=== PATIENT | male | born 1975 | race Caucasian/White ===

== ENCOUNTER 2023-09-02 17:30 | Emergency (ER) | payer BC, SELFPAY ==
[2023-09-02] VITALS (17 sets, daily range): BP systolic 131–151; BP diastolic 78–91; PULSE 58–74; RESP 20; TEMP 36.9; O2SAT 95–98; BMI 33.2
--- NOTE | 2023-09-02 17:45 | ED.GENADULT ---
HPI - General Adult General Date Seen: 09/02/23 Chief complaint: Anxiety Stated complaint: dizzy, chest pain Time Seen by Provider: 09/02/23 17:45 History of Present Illness HPI narrative: 47-year-old gentleman with a history of ankylosing spondylitis (on Humira and Celebrex), presenting to the ER today with his for evaluation of dizziness. History is obtained primarily from the patient but is also supplemented in many areas by his . He has had symptoms of dizziness intermittently for the past 10 days or so. For symptoms began about 10 days ago. He remembers bending over and crouching down his house to work on his VAC when he suddenly began to feel very dizzy. He felt a bit off balance but not really vertigo or spinning and he felt like he might pass out. He was nauseous. He got a little bit sweaty. No other symptoms. No chest pain. No palpitations. No headache. No seizure activity. He went to go lay down occur on the couch to nap and while lying down started feel better. was checking on him and noted that after a few minutes he fell asleep. After he woke up use feeling a bit better but for the next week or so he had a period of ?just not feeling right? every day. He really can not describe but was not right but maybe a little bit weak or tired or somewhat off balance. He was feeling well enough that he and his were traveling from [place] to [place] (see their college age son participate in a rowing event). He recalls that he was able to drive and as they were going through traffic in [place] he had an episode where he suddenly felt very dizzy again. He was sweaty and dizzy and nauseous and had pulled the side of the road. His continue driving. He was able to get better. They stopped and ate some dinner (chipoltle). He remained a little bit dizzy and unsteady throughout the evening but was able to sleep in their hotel in [place]. The following day they went to [place] to see their son's event. The plan had been to stay in [place] and then do age short trip home with stops in [place] overnight and was medicine overnight) but he decided since he was feeling unwell they would just come straight home. They drove home yesterday and arrived home today. Also yesterday he started to have some mild discomfort in his left pectoral muscle. He says he thinks it might be just because he had worked out and lifted weights a few days ago and it was a pulled muscle. It has been present since then although today in addition to being on the left it has also moved to the center and right of his chest. The pain otherwise does not radiate down the arm, up to the jaw, through to the back, or down to the abdomen. He still feels a little bit abnormal. Slightly dizzy. He has already made an appointment with his primary care doctor. However with the totality of his symptoms and now the chest pain since yesterday he decided to come to the ER to be checked out. He has no history of hypertension, dyslipidemia, although his doctor has been telling him to eat a healthy diet. He tends to eat a lot of protein and high fat diet because that helps prevent his joint aches from his ankylosing spondylitis. He has no history of diabetes. He has used a CGM in the past (which he bought for himself because of health monitoring plans) he has had some episodes of low blood sugars and he wonders if he might have been having ?lows? with during his dizzy spells last week. He also notes that he has had some occasional flashes in his eyes for the past month or so. No other visual symptoms. Related Data Home Medications Medication Instructions Recorded Confirmed adalimumab [Humira] subcut 11/30/22 08/15/23 celecoxib [Celebrex] PO 11/30/22 08/15/23 fluoxetine 10 mg capsule (Prozac) 10 mg PO QDAY 11/30/22 08/15/23 fluoxetine 20 mg capsule (Prozac) 20 mg PO QDAY 11/30/22 08/15/23 Allergies Allergy/AdvReac Type Severity Reaction Status Date / Time methotrexate AdvReac Unknown Verified 08/21/23 09:10 [facility] Medical History (Updated 09/02/23 @ 20:44 by Les Craig MD) Spondylitis ?M46.90 - Unspecified inflammatory spondylopathy, site unspecified (ICD-10) Rheumatoid arthritis ?M06.9 - Rheumatoid arthritis, unspecified (ICD-10) Depression ?F32.A - Depression, unspecified (ICD-10) Arthritis ?M19.90 - Unspecified osteoarthritis, unspecified site (ICD-10) Surgical History (Updated 11/30/22 @ 14:49 by Padmini Morrow ~ [facility]) Nontraumatic rupture of tendon of left thumb ?M66.842 - Spontaneous rupture of other tendons, left hand (ICD-10) Social History Smoking Status: Never smoker How often do you have a drink containing alcohol: never How often do you have six or more drinks on one occasion: Never AUDIT-C Alcohol total score: 0 Non-prescribed substance use: denies use Exam Narrative: Exam Narrative: Constitutional: Appears well-developed and well-nourished. Alert. Conversant. Non toxic. HENT: Head: Atraumatic. Nose: Nose normal. Mouth/Throat: Oral mucosa is clear and moist. no trismus. Pharynx normal. Tonsils symmetric. No tonsillar enlargement, erythema, or exudate. Eyes: Conjunctivae normal. EOM normal. Pupils equal, round, and reactive to light. No scleral icterus. No nystagmus Neck: Normal range of motion. Neck supple. No tracheal deviation present. No JVD Cardiovascular: Normal rate, regular rhythm. No gallop. No friction rub. No murmur heard. Symmetric radial and PT artery pulses Pulmonary/Chest: Effort normal. No stridor. No respiratory distress. No wheezes. No rales. No rhonchi . No tenderness. Abdominal: Soft. Bowel sounds normal. No distension. No mass. No tenderness. No rebound. No guarding. Musculoskeletal: RUE: Normal range of motion. No tenderness. No deformity LUE: Normal range of motion. No tenderness. No deformity RLE: Normal range of motion. No edema. No tenderness. No deformity LLE: Normal range of motion. No edema. No tenderness. No deformity Neurological: Mental status normal. Attention normal. Alert and oriented x3. GCS 15. Memory normal. Speech fluent. Cognition normal. Cranial Nerves intact II-XII except I did not formally test gag or visual acuity. EOMI. Palate elevates symmetrically and tongue protrudes in the midline. Strength: 5/5 trapezius on the right and left 5/5 deltoid on the right and left 5/5 biceps on the right and left 5/5 triceps on the right and left 5/5 butcher scullion on the right and left 5/5 thumb opposition on the right and left 5/5 finger abduction on the right and left 5/5 hip flexors (L3) on the right and left 5/5 quadriceps (L4) on the right and left 5/5 tibialis anterior on the right and left 5/5 EHL (L5) on the right and left 5/5 gastrocnemius (S1) on the right and left 5/5 hamstring on the right and left Sensation intact to light touch in both upper extremities (C4-T1) Sensation intact to light touch in Both lower extremities (L4-S1). Finger to nose and coordination normal. Gait normal. Skin: Skin is warm and dry. No rash noted. No pallor. Normal capillary refill. Psychiatric: Normal mood. Normal affect. Const: Vital Signs, click to edit/add: Vital Signs - 24 hr 09/02/23 17:40 09/02/23 17:44 09/02/23 17:46 Temperature 98.4 F Pulse Rate 65 Pulse Rate [Pulse Oximeter] 69 Respiratory Rate 20 Blood Pressure Blood Pressure [Le ft Upper Arm] 151/91 H Pulse Oximetry 97 96 98 Oxygen Delivery [facility] Room Air 09/02/23 18:00 09/02/23 18:02 09/02/23 18:15 Temperature Pulse Rate 71 71 67 Pulse Rate [Pulse Oximeter] Respiratory Rate Blood Pressure 144/86 H Blood Pressure [Le ft Upper Arm] Pulse Oximetry 97 97 97 Oxygen Delivery [facility] 09/02/23 18:30 09/02/23 18:32 09/02/23 18:45 Temperature Pulse Rate 62 63 60 Pulse Rate [Pulse Oximeter] Respiratory Rate Blood Pressure 136/86 Blood Pressure [Le ft Upper Arm] Pulse Oximetry 96 96 96 Oxygen Delivery [facility] 09/02/23 19:00 09/02/23 19:02 09/02/23 19:15 Temperature Pulse Rate 60 58 L 64 Pulse Rate [Pulse Oximeter] Respiratory Rate Blood Pressure 131/82 Blood Pressure [Le ft Upper Arm] Pulse Oximetry 97 98 95 [facility] 09/02/23 19:31 09/02/23 20:02 09/02/23 20:31 Temperature Pulse Rate 60 67 65 Pulse Rate [Pulse Oximeter] Respiratory Rate 20 20 20 Blood Pressure 139/81 131/82 142/87 H Blood Pressure [Le ft Upper Arm] Pulse Oximetry 96 96 97 Oxygen Delivery Me thod 09/02/23 20:57 09/02/23 20:58 Temperature 98.4 F 98.4 F Pulse Rate Pulse Rate [Pulse Oximeter] 74 74 Respiratory Rate 20 20 Blood Pressure Blood Pressure [Le ft Upper Arm] 132/78 132/78 Pulse Oximetry 97 Oxygen Delivery Me thod Room Air Course Vital Signs Vital signs: Initial Vital Signs Pulse Oximetry 97 09/02/23 17:40 Vital Signs Pulse Oximetry 97 09/02/23 17:40 Temperature 98.4 F 09/02/23 20:58 Pulse Rate 74 09/02/23 20:58 Respiratory Rate 20 09/02/23 20:58 Blood Pressure 132/78 09/02/23 20:58 Pulse Oximetry 97 09/02/23 20:57 Oxygen Delivery Method Room Air 09/02/23 20:57 Medications Administered Medications: Discontinued Medications Generic Name Dose Route Start Last Admin Trade Name Freq PRN Reason Stop Dose Admin Sodium Chloride 1,000 mls @ 1,000 mls/hr 09/02/23 19:00 09/02/23 19:52 0.9 % Sodium Chloride 1000 Ml IV 09/02/23 19:59 Infused .Q1H CALOS Infusion Medical Decision Making MDM Narrative Medical decision making narrative: This is a 47-year-old male presenting to the ER today with symptoms that are difficult for him to characterize. He has been having a couple of episodes of intense dizziness over the past couple weeks and also a generalized feeling of something being off for the past week or so. Also with that he has had some mild left upper chest discomfort since yesterday. In terms of the dizziness differential is broad. No clear vertigo or other neurologic symptoms to suggest vertigo or [employer] etiology. We did obtain head CT scan which is normal. No evidence for any subacute infarct, brain edema, tumor, or intracranial hemorrhage. No history of head trauma. He is not having any focal neurologic symptoms to suggest acute CVA. MRI not available here in the ER today on Sunday. With neurologic symptoms dating back about 10 days, I do not think he needs admission for emergent inpatient brain MRI to look for stroke. However if no other etiology for symptoms is found during workup he may need outpatient MRI. EKG shows sinus rhythm. Nonspecific changes in lead 3 only but no definite ischemia. With chest pain we did obtain 2 troponins which are both normal. Laboratory workup shows normal kidney function, normal blood sugar, normal hemoglobin. Thyroid function normal. He has no significant history of dyslipidemia but [employer] noted that the serum of his blood looks lipemic. We did add on a lipid panel. Triglyceride level is 976 today. This is actually up by about 700 points compared to his triglyceride level done through the [facility] in June. Unclear etiology. He has not really changed his diet. Discussed with our hospitalist, Dr. Mccauley. He does not think the elevated triglyceride level would be high enough to cause symptoms or affect flow. Patient is not having any abdominal pain and labs show no evidence for pancreatitis. With elevated triglycerides he would be at risk for coronary disease. However it sounds like this is a fairly acute change for him. Serial EKGs and troponins are nonischemic here. No evidence for E arrhythmia either. I do think he needs stress testing. Discussed with our hospitalist. At this point admission would likely not be helpful to facilitate stress testing since even if your inpatient he cannot have a stress test until Sunday. Therefore will discharge home and he already has an appointment set up with primary care on Sunday. They can recheck his lipid panel on Sunday and arrange outpatient stress testing. However if he has any worsening symptoms or any further episodes of chest pain that dizziness he should return to the ER right away to be rechecked. Lab Data Labs: Lab Results 09/02/23 09/02/23 09/02/23 Range/Units 17:43 17:45 17:48 WBC 6.24 (4.50-11.00) K/uL RBC 5.30 (4.30-5.90) m/uL Hgb 17.1 (13.5-17.5) gm/dL Hct 48.5 (37.0-53.0) % MCV 92 (80-100) fL MCH 32 (26-34) pg MCHC 35 (32-36) gm/dL RDW Coeff of Zoë 12.6 (11.5-15.5) % Plt Count 171 (140-440) K/uL Neut % (Auto) 56.3 (42.0-72.0) % Lymph % (Auto) 34.0 (20-44) % [place] % (Auto) 7.4 (0.0-11.0) % Eos % (Auto) 1.6 (0.0-7.0) % Baso % (Auto) 0.5 (0.0-3.0) % Neut # (Auto) 3.52 (1.7-7.0) K/uL Lymph # (Auto) 2.12 (0.90-2.90) K/uL [place] # (Auto) 0.50 (0.00-0.90) K/UL Eos # (Auto) 0.10 (0.00-0.50) K/uL Baso # (Auto) 0.03 (0.00-0.30) K/uL Abs Immat Gran (auto) 0.01 (0.00-0.30) K/uL Imm/Tot Granulo (auto) 0.2 % D-Dimer Quant (PE/DVT) 0.44 (0.00-0.50) ug/ml Sodium 137 (135-149) mmol/L Potassium 4.2 (3.6-5.1) mmol/L Chloride 106 (96-114) mmol/L Carbon Dioxide 23 (20-32) mmol/L Anion Gap 8 (7-15) mEq/L BUN 27 H (5-24) mg/dL Creatinine 1.1 (0.5-1.5) mg/dL Estimated Creat Clear 81.23 Estimated GFR 82 ml/min Glucose 93 (60-115) mg/dL Lactate (0.5-1.9) mmol/L Calcium 8.4 (8.4-10.6) mg/dL Magnesium 2.2 (1.5-2.6) mg/dL Triglycerides 976 H (40-149) mg/dL Cholesterol 221 H (90-199) mg/dL LDL Cholesterol, Calc 8 (<100) mg/dL HDL Cholesterol 18 L (>=40) mg/dL Lipase (23-300) U/L TSH 2.820 (0.270-4.200) uIU/mL Lab Acknowledgement POC Troponin I 0.03 (0.01-0.04) ng/ml 09/02/23 09/02/23 09/02/23 Range/Units 18:20 18:52 19:48 WBC (4.50-11.00) K/uL RBC (4.30-5.90) m/uL Hgb (13.5-17.5) gm/dL Hct (37.0-53.0) % MCV (80-100) fL MCH (26-34) pg MCHC (32-36) gm/dL RDW Coeff of Zoë (11.5-15.5) % Plt Count (140-440) K/uL Neut % (Auto) (42.0-72.0) % Lymph % (Auto) (20-44) % [place] % (Auto) (0.0-11.0) % Eos % (Auto) (0.0-7.0) % Baso % (Auto) (0.0-3.0) % Neut # (Auto) (1.7-7.0) K/uL Lymph # (Auto) (0.90-2.90) K/uL [place] # (Auto) (0.00-0.90) K/UL Eos # (Auto) (0.00-0.50) K/uL Baso # (Auto) (0.00-0.30) K/uL Abs Immat Gran (auto) (0.00-0.30) K/uL Imm/Tot Granulo (auto) % D-Dimer Quant (PE/DVT) (0.00-0.50) ug/ml Sodium (135-149) mmol/L Potassium (3.6-5.1) mmol/L Chloride (96-114) mmol/L Carbon Dioxide (20-32) mmol/L Anion Gap (7-15) mEq/L BUN (5-24) mg/dL Creatinine (0.5-1.5) mg/dL Estimated Creat Clear Estimated GFR ml/min Glucose (60-115) mg/dL Lactate 0.9 (0.5-1.9) mmol/L Calcium (8.4-10.6) mg/dL Magnesium (1.5-2.6) mg/dL Triglycerides (40-149) mg/dL Cholesterol (90-199) mg/dL LDL Cholesterol, Calc (<100) mg/dL HDL Cholesterol (>=40) mg/dL Lipase 169 (23-300) U/L TSH (0.270-4.200) uIU/mL Lab Acknowledgement Test Added POC Troponin I 0.02 (0.01-0.04) ng/ml Imaging Data CT scan - head: Attestation: I have reviewed the pertinent imaging results. Radiologist's impression: IMPRESSION: No evidence of an acute intracranial abnormality. Unremarkable noncontrast head CT. ECG Data Attestation: I personally reviewed and interpreted this ECG as follows: Interpretation: Normal sinus rhythm Rate: Rate 66 ME: 150 QRS axis: Normal axis. No pathologic Q-waves. No delta waves. ST segment/T wave: T-wave inversion and less than [address] depression in lead 3. Other inferior leads are normal. No other ST segment elevation or depression. QTc: 410 EKG 2. Normal sinus rhythm rate 60 Rate: 60 ME: 156 QRS axis: Normal axis. ST segment/T wave: No ST segment elevation or depression. Nonspecific changes in lead 3. Suspect lead placement is slightly different than on 1st EKG. QTc: 402 Discharge Plan Discharge Clinical Impression: Dizziness, Hypertriglyceridemia, Chest pain Patient Disposition: Home, Self-Care Condition: Stable Instructions: Chest Pain (DC), Dizziness (ED), Hyperlipidemia (DC) Additional Instructions: As we discussed, please come back to the ER right away if you have any problems especially more episodes of dizziness or sweatiness, worsening chest pain, trouble breathing, fainting spells, or if you have any concerns. Please follow-up with your regular doctor by Sunday to discuss ordering a stress test for your heart and recheck your triglycerides and lipid panel (do not eat before your checkup on Sunday). Prescriptions: No Action celecoxib [Celebrex] PO adalimumab [Humira] subcut fluoxetine [Prozac] 20 mg capsule 20 mg PO QDAY fluoxetine [Prozac] 10 mg capsule 10 mg PO QDAY Follow Up/Referrals: Provider,Not a Local [Primary Care Provider] - Stand Alone Forms: [employer] Info Instructions
[2023-09-02 17:56] LABS: Basophils Absolute Auto 0.03 K/uL (0.00-0.30); Basophils Percent Auto 0.5 % (0.0-3.0); Eosinophils Percent Auto 1.6 % (0.0-7.0); Hematocrit 48.5 % (37.0-53.0); Hemoglobin* 17.1 gm/dL (13.5-17.5); Immature Granulocytes Abs Auto 0.01 K/uL (0.00-0.30); Immature Granulocytes Pct Auto 0.2 %; Lymphocytes Absolute Auto 2.12 K/uL (0.90-2.90); Mean Corpuscular HGB Conc 35 gm/dL (32-36); Mean Corpuscular Hemoglobin 32 pg (26-34); Mean Corpuscular Volume 92 fL (80-100); Monocytes Percent Auto 7.4 % (0.0-11.0); Neutrophils Absolute Auto 3.52 K/uL (1.7-7.0); Neutrophils Percent Auto 56.3 % (42.0-72.0); Platelet Count* 171 K/uL (140-440); RDW Coefficient of Variation % 12.6 % (11.5-15.5); White Blood Count* 6.24 K/uL (4.50-11.00)
[2023-09-02 17:58] LABS: Troponin, Point-of-Care* 0.03 ng/ml (0.01-0.04)
[2023-09-02 17:59] LABS: Slide Review Reflex No
[2023-09-02 18:12] LABS: Chloride* 106 mmol/L (96-114); Potassium* 4.2 mmol/L (3.6-5.1); Sodium* 137 mmol/L (135-149)
[2023-09-02 18:14] LABS: Creatinine* 1.1 mg/dL (0.5-1.5); Est. Creatinine Clearance* 81.23; Estimated Glomerular Filt Rate 82 ml/min
[2023-09-02 18:15] LABS: Anion Gap 8 mEq/L (7-15); Blood Urea Nitrogen* 27 mg/dL (5-24); Calcium* 8.4 mg/dL (8.4-10.6); Carbon Dioxide* 23 mmol/L (20-32); Glucose* 93 mg/dL (60-115)
--- NOTE | 2023-09-02 18:15 | CT_ITS ---
Patient: JACQUELYN BEST Facility:?[facility] Patient ID:?[id number] Site Patient ID:?[id number]. Site :?[id number] Study:?CT-Head without contrast-09/02/2023 6:34:41 PM Ordering Physician:Les Quintana Final Report: INDICATION: Dizzy spells, nausea. TECHNIQUE: CT head without contrast. COMPARISON: None. FINDINGS: Brain parenchyma, CSF spaces, and extra-axial spaces: The velazquez-white differentiation is normal. No sign of mass, hemorrhage, or midline shift. No hydrocephalus. No extra-axial fluid collection. Skull base and calvarium: The visualized paranasal sinuses and mastoid air cells demonstrate no acute or significant findings. The visualized orbits are grossly unremarkable. No skull fractures. IMPRESSION: No evidence of an acute intracranial abnormality. Unremarkable noncontrast head CT. Please note that all CT scans at this facility use dose modulation, iterative reconstruction, and/or weight-based dosing when appropriate to reduce radiation dose to as low as reasonably achievable. Dictated by Les Roque MD @ 09/02/2023 6:39:26 PM Signed by:?Les Roque MD @09/02/2023 6:39:26 PM (Electronic Signature)
[2023-09-02 18:28] LABS: Lactate* 0.9 mmol/L (0.5-1.9)
[2023-09-02 18:40] LABS: Magnesium* 2.2 mg/dL (1.5-2.6)
[2023-09-02 18:46] LABS: Cholesterol* 221 mg/dL (90-199); HDL Cholesterol* 18 mg/dL (>=40)
[2023-09-02 18:54] LABS: LDL Cholesterol Calculated 8 mg/dL (<100); Triglycerides* 976 mg/dL (40-149)
[2023-09-02] MEDS: 0.9 % SODIUM CHLORIDE 1000 ml 1,000 ML IV (18:57)
[2023-09-02 19:11] LABS: Lipase* 169 U/L (23-300)
[2023-09-02 19:14] LABS: D Dimer Quantitative* 0.44 ug/ml (0.00-0.50)
[2023-09-02 19:57] LABS: Troponin, Point-of-Care* 0.02 ng/ml (0.01-0.04)
== END 2023-09-02 20:59 | disposition home or self-care (01) ==
PROVIDERS: Emergency Provider Emergency Medicine
DX: R07.9 Chest pain, unspecified (principal); R42 Dizziness and giddiness; E78.1 Pure hyperglyceridemia
CPT/HCPCS: 36415; 70450; 80048; 80061; 83605; 83690; 83735; 84443; 84484; 85025; 85379; 93005; 94761; 99284; 99285; J7030